=== PATIENT | female | born 1965 | race Two or more races ===

== ENCOUNTER 2022-03-07 06:53 | Day surgery (SDC) | payer OTHER ==
[~2022-03-07] VITALS: Ht 162.6 cm; Wt 72.6 kg
[~2022-03-07 06:53] MED LIST: ALBU0.08 HHN; ALBU108A5 IN; ASPI-498 OR; CHOL1CAP21 PO; CLOP75TA70 PO; DIVA500T12 PO; DOCU-94 PO; FLU220IH INH; HYDR-4902 PO; LIDO5DIS21 TOP; PANT40T PO; POM; PRAM0.12 PO; TIOT1AER IN; TOPI1CAP22 OR; VARE1TAB PO; [UNRECOGNIZED DRUG - CODE] PO
[2022-03-07] MEDS ORDERED: VERAPAMIL 2.5MG/ML INJ 2ML VIAL IV ONE (07:31)
[2022-03-07] MEDS ORDERED: ANGIOMAX 250 MG VIAL IV ONE (07:31)
[2022-03-07] MEDS ORDERED: MIDAZOLAM HCL 2MG/2ML 2ml VIAL (1mg/ml) ONE (07:32)
[2022-03-07] MEDS ORDERED: fentaNYL CITRATE 100 MCG/2 ML VL ONE (07:32)
[2022-03-07] MEDS ORDERED: SODIUM CHL 0.9% 0 ML ONE (07:32)
[2022-03-07] MEDS ORDERED: IOHEXOL 350 MG/ML 100ML IJ ONE ×2 (07:32→07:55)
[2022-03-07] MEDS ORDERED: LIDOCAINE 2%HCL (LOCAL ANESTH.) INJ 20ML MDV ONE (07:32)
[2022-03-07] MEDS ORDERED: HEPARIN SODIUM (PORCINE) 5000 UNITS/ML 1ML VIAL ONE (07:33)
== END 2022-03-07 10:39 | disposition home or self-care (01) ==
LOC: CATH 06:53
PROVIDERS: ATTEND Internal Medicine Cardiovascular Disease
DX: R07.89 Other chest pain (principal); Z87.891 Personal history of nicotine dependence; Z20.822 Contact with and (suspected) exposure to COVID-19
CPT/HCPCS: 93458; C1887; C1894; J1644; J2250; J3010; J7030; Q9967; U0003; 99152